=== PATIENT | female | born 1945 | race Hispanic/Latino ===

== ENCOUNTER → 2017-06-06 | Outpatient (CLI) | payer OTHER, MEDICARE ==
[~2017-06-06] MED LIST: ASPI-555 PO; LEVO100T12 PO; LISI2.5T2 PO; PANT40TA25 PO; ROSU10TA PO; SITA100T12 PO
== END | disposition home or self-care (01) ==
LOC: RAH 08:31
PROVIDERS: ATTEND Internal Medicine
DX: R92.8 Other abnormal and inconclusive findings on diagnostic imaging of breast (principal); Z85.3 Personal history of malignant neoplasm of breast; Z90.12 Acquired absence of left breast and nipple
CPT/HCPCS: 77065

== ENCOUNTER 2017-07-19 22:21 | Emergency (ER) | payer OTHER, MEDICARE | END 2017-07-20 00:01 | disposition home or self-care (01) | LOC: EDH 22:21 | DX: T23.101A Burn of first degree of right hand, unspecified site, initial encounter (principal); E11.9 Type 2 diabetes mellitus without complications; I10 Essential (primary) hypertension; E78.5 Hyperlipidemia, unspecified; Z98.890 Other specified postprocedural states; Z72.0 Tobacco use; X12.XXXA Contact with other hot fluids, initial encounter; Y93.89 Activity, other specified; Y92.098 Other place in other non-institutional residence as the place of occurrence of the external cause; Y99.8 Other external cause status | CPT/HCPCS: 16000 ==

== ENCOUNTER 2018-03-04 15:38 | Observation (INO) | payer OTHER, MEDICARE ==
[~2018-03-04] VITALS: Ht 165.1 cm; Wt 95.0 kg
[2018-03-04] MEDS ORDERED: SODIUM CHLORIDE 0.9% 1000ML 1,000 ML IV ONE (16:12)
[2018-03-04 16:35] LABS: BASOPHILS % (AUTO) 0.6 % (0.0-5.0); EOSINOPHILS % (AUTO) 1.1 % (0.0-8.0); LYMPHOCYTES % (AUTO) 24.1 % (21.0-51.0); MEAN CORPUSCULAR HEMOGLOBIN 28.7 pg (27.0-33.0); MEAN CORPUSCULAR HGB CONC 32.7 g/dL (32.0-36.0); MEAN CORPUSCULAR VOLUME 87.7 fL (79-99); MONOCYTES % (AUTO) 6.3 % (3.0-13.0); NEUTROPHILS % (AUTO) 67.9 % (40.0-77.0); NUCLEATED RED BLOOD CELLS 0.2 % (0.0-0.19); PLATELET COUNT (AUTO) 156 K/uL (130-400); RED BLOOD CELL COUNT(AUTO) 4.79 MIL/uL (4.00-5.50); RED CELL DISTRIBUTION WIDTH 15.2 % (11.0-15.5); WHITE BLOOD COUNT (AUTO) 11.3 K/uL (4.8-10.8)
[2018-03-04 16:51] LABS: INR 0.97 (0.85-1.15); PROTHROMBIN TIME 10.2 SEC (9.6-11.6)
[2018-03-04 16:53] LABS: CARBON DIOXIDE 23 mmol/L (21-32); CHLORIDE 104 mmol/L (101-111); CREATININE 0.8 mg/dL (0.5-1.5); GLOMERULAR FILTR. RATE CALC 75 mL/min (>60); GLUCOSE,RANDOM 119 mg/dL (70-105); POTASSIUM 3.9 mmol/L (3.5-5.1); SODIUM SERUM 138 mmol/L (136-145); UREA NITROGEN, BLOOD 18 mg/dL (7-18)
[2018-03-04 17:06] LABS: ALANINE AMINOTRANSFERASE 25 U/L (12-78); ALBUMIN 3.7 g/dL (3.5-5.0); ASPARTATE AMINOTRANSFERASE 22 U/L (10-37); BILIRUBIN,TOTAL 0.8 mg/dL (0.2-1.0); CREATINE KINASE, TOTAL 108 U/L (21-232); MYOGLOBIN 31 ng/mL (10-92); TOTAL PROTEIN, SERUM 7.7 g/dL (6.0-8.3); TROPONIN I < 0.04 ng/mL (0.00-0.06)
[2018-03-04 17:28] LABS: APPEARANCE,URINE Clear (CLEAR); BILIRUBIN,URINE Negative (NEGATIVE); COLOR,URINE Yellow (YELLOW); GLUCOSE, URINE (UA) Negative (NEGATIVE); KETONES,URINE Trace mg/dL (NEGATIVE); LEUKOCYTE ESTERASE ,URINE Trace (NEGATIVE); NITRATE,URINE Negative (NEGATIVE); OCCULT BLOOD,URINE Negative (NEGATIVE); PROTEIN,URINE Negative (NEGATIVE)
[2018-03-04 17:45] LABS: RBC,URINE 0-1 /HPF (0-1)
[2018-03-04 17:46] LABS: BACTERIA,URINE Rare /HPF (None Seen); SQUAMOUS EPITHELIAL CELL,UR Few /HPF (0-2)
[2018-03-04] MEDS ORDERED: COMPOUND IV REFRIGERATED 1 EACH IVSOLN MISC PRN (19:00)
[2018-03-04] MEDS ORDERED: VANCOMYCIN 1.5 GM in SODIUM CHLORIDE 0.9% 250 ML IV ONE (19:00)
[2018-03-04] MEDS ORDERED: VANCOMYCIN PROTOCOL PER PHARMACY IV SCH (19:00)
[2018-03-04] MEDS ORDERED: VANCOMYCIN 2 GM in SODIUM CHLORIDE 0.9% 500ML 500 ML IV ONE (20:00)
[2018-03-04 21:30] VITALS: BP 127/59
[2018-03-04] MEDS: ACETAMINOPHEN 325 MG TAB PO PRN (21:59)
[2018-03-04 23:00] VITALS: BP 104/57
[2018-03-05] MEDS ORDERED: LEVO100T12 PO (01:52)
[2018-03-05] MEDS: 1/2 NORMAL SALINE 1,000 ML IV SCH ×4 (02:29→21:16)
[2018-03-05 03:00] VITALS: BP 90/55
[2018-03-05 04:31] VITALS: BP 101/61
[2018-03-05 05:08] LABS: HEMATOCRIT 37.5 % (36-48); MEAN CORPUSCULAR HEMOGLOBIN 29.9 pg (27.0-33.0); MEAN CORPUSCULAR HGB CONC 34.1 g/dL (32.0-36.0); MEAN CORPUSCULAR VOLUME 87.8 fL (79-99); PLATELET COUNT (AUTO) 145 K/uL (130-400); RED BLOOD CELL COUNT(AUTO) 4.27 MIL/uL (4.00-5.50); WHITE BLOOD COUNT (AUTO) 8.1 K/uL (4.8-10.8)
[2018-03-05 05:24] LABS: ALBUMIN 3.1 g/dL (3.5-5.0); BILIRUBIN,TOTAL 0.8 mg/dL (0.2-1.0); CREATININE 0.8 mg/dL (0.5-1.5); POTASSIUM 3.9 mmol/L (3.5-5.1); TOTAL PROTEIN, SERUM 6.6 g/dL (6.0-8.3)
[2018-03-05 08:12] VITALS: BP 104/52
[2018-03-05] MEDS: PANTOPRAZOLE SODIUM 40 MG TABLET.DR PO SCH (08:29)
[2018-03-05] MEDS: VANCOMYCIN 750MG + NS 250 ML IV SCH ×4 (10:03→21:12)
[2018-03-05] MEDS: ASPIRIN 81 MG EC TAB PO SCH (10:03)
[2018-03-05] MEDS: LINAGLIPTIN 5 MG TABLET PO SCH (10:10)
[2018-03-05 11:51] VITALS: BP 96/55
[2018-03-05 16:02] VITALS: BP 105/53
--- NOTE | 2018-03-05 16:55 | NUR ---
DCP CM met with pt discussed dc plans. Pt is independent prior to admission, lives at home alone, granddaughter Dea Mott lives close by. Pt has a provider 3hrs Fri-Friday. Pt denies any other equipments/services. Feels safe to go back home, still drives, granddaughter able to assist assist with transportation and needs as necessary. DC plan to home once stable. Addendum: 03/05/18 at 1658 by DENISE LOUIS LVN CM Amended: Links added.
[2018-03-05] MEDS ORDERED: CEFTRIAXONE SODIUM 2 GM VIAL IVP SCH (18:00)
[2018-03-05 19:00] VITALS: BP 121/62
[2018-03-05] MEDS ORDERED: ATORVASTATIN CALCIUM 20 MG TABLET PO SCH (21:00)
[2018-03-06 00:24] VITALS: BP 115/69
[2018-03-06 04:02] VITALS: BP 110/64
[2018-03-06 04:40] LABS: HEMATOCRIT 38.9 % (36-48); MEAN CORPUSCULAR HEMOGLOBIN 29.2 pg (27.0-33.0); MEAN CORPUSCULAR HGB CONC 33.5 g/dL (32.0-36.0); MEAN CORPUSCULAR VOLUME 87.1 fL (79-99); NUCLEATED RED BLOOD CELLS 0.1 % (0.0-0.19); PLATELET COUNT (AUTO) 139 K/uL (130-400); RED BLOOD CELL COUNT(AUTO) 4.47 MIL/uL (4.00-5.50); RED CELL DISTRIBUTION WIDTH 15.1 % (11.0-15.5); WHITE BLOOD COUNT (AUTO) 6.3 K/uL (4.8-10.8)
[2018-03-06] MEDS ORDERED: LEVOTHYROXINE 100 MCG TABLET ONE (04:52)
[2018-03-06] MEDS: ACETAMINOPHEN 325 MG TAB PO PRN (04:54)
[2018-03-06 05:06] LABS: CREATININE 0.8 mg/dL (0.5-1.5); POTASSIUM 4.3 mmol/L (3.5-5.1)
[2018-03-06] MEDS ORDERED: LEVOTHYROXINE 100 MCG TABLET PO SCH (06:30)
[2018-03-06 07:00] VITALS: BP 121/62
[2018-03-06] MEDS: PANTOPRAZOLE SODIUM 40 MG TABLET.DR PO SCH (10:47)
[2018-03-06] MEDS: LINAGLIPTIN 5 MG TABLET PO SCH (10:47)
[2018-03-06] MEDS: ASPIRIN 81 MG EC TAB PO SCH (10:48)
[2018-03-06] MEDS: 1/2 NORMAL SALINE 1,000 ML IV SCH (10:48)
[2018-03-06 11:00] VITALS: BP 108/50
--- NOTE | 2018-03-06 11:50 | NUR ---
CALLED DR PARSONS TO GET PATIENT PREPARED FOR DISCAHRGE. NEED FINAL MEDS FOR DISCAHRGE. IT WAS NOT DONE
--- NOTE | 2018-03-06 13:50 | NUR ---
CALLED PHARMACY FOR THE THIRD TIME, THEY APOLOGIZED AND SAID THEY WERE GONNA PUT A VANCO DOSE RIGHT NOW. CALLED DR PARSONS TO GET THE MED REC FOR DISCHARGE. THERE IS A DISCHARGE ORDER BUT THE MEDS WERE NOT FINALIZED, CALLED [phone]. THIS IS THE SECOND TIME I CALL [facility], I LEFT A MESSAGE EXPLAINING THE SITUATION, WILL BE ON STAND BY.
[2018-03-06] MEDS ORDERED: VANCOMYCIN 1GM+NS 250ML 250 ML IV ONE (14:00)
--- NOTE | 2018-03-06 14:34 | NUR ---
GISELL WEBBER TO CALL [facility] AGAIN. THE OFFICE STATED HE WAS NOT THERE, WE TOLD THEM WE NEED [facility]ID DIS CHARGE INSTRUCTIONS FOR A DISCAHRGE FROM [facility] THAT WAS INCOMPLETE. WILL BE ON STAND BY FOR [facility] TO CALL BACK
[2018-03-06 15:44] VITALS: BP 121/68
== END 2018-03-06 17:00 | disposition home or self-care (01) ==
LOC: EDH 15:38 → EDHIP 18:08 → 3DH 19:46
PROVIDERS: ADMIT Internal Medicine; ATTEND Internal Medicine
DX: L03.114 Cellulitis of left upper limb (principal); I89.0 Lymphedema, not elsewhere classified; E11.9 Type 2 diabetes mellitus without complications; E78.5 Hyperlipidemia, unspecified; I10 Essential (primary) hypertension; I25.10 Atherosclerotic heart disease of native coronary artery without angina pectoris; Z85.3 Personal history of malignant neoplasm of breast
CPT/HCPCS: 36415 ×3; 71045; 80048; 80053 ×2; 80202; 81001; 82550; 82948 ×8; 83605; 83874; 84484; 85025; 85027 ×2; 85610; 85730; 87040 ×2; 87088; 93005; 96365; 96366 ×3; 96375; 96376; 99284; A4218; G0378 ×47; J0696; J3370 ×4; J7030 ×3; J7040

== ENCOUNTER 2018-06-09 20:21 | Emergency (ER) | payer OTHER, MEDICARE ==
[2018-06-09 21:22] LABS: BASOPHILS % (AUTO) 0.6 % (0.0-5.0); EOSINOPHILS % (AUTO) 4.1 % (0.0-8.0); HEMATOCRIT 39.5 % (36-48); LYMPHOCYTES % (AUTO) 35.5 % (21.0-51.0); MEAN CORPUSCULAR HEMOGLOBIN 30.7 pg (27.0-33.0); MEAN CORPUSCULAR HGB CONC 34.5 g/dL (32.0-36.0); MONOCYTES % (AUTO) 7.9 % (3.0-13.0); NEUTROPHILS % (AUTO) 51.9 % (40.0-77.0); PLATELET COUNT (AUTO) 143 K/uL (130-400); RED BLOOD CELL COUNT(AUTO) 4.44 MIL/uL (4.00-5.50); RED CELL DISTRIBUTION WIDTH 14.2 % (11.0-15.5); WHITE BLOOD COUNT (AUTO) 7.7 K/uL (4.8-10.8)
[2018-06-09 21:31] LABS: CREATININE 0.8 mg/dL (0.5-1.5); POTASSIUM 4.2 mmol/L (3.5-5.1)
[2018-06-09 21:36] LABS: ALBUMIN 3.8 g/dL (3.5-5.0); BILIRUBIN,TOTAL 0.7 mg/dL (0.2-1.0); TOTAL PROTEIN, SERUM 7.6 g/dL (6.0-8.3)
[2018-06-09] MEDS ORDERED: MORPHINE SULFATE 4 MG/1ML SYG ONE (21:37)
[2018-06-09] MEDS ORDERED: ONDANSETRON HCL 4 MG/2 ML VIAL ONE (21:37)
[2018-06-09] MEDS ORDERED: ONDANSETRON ODT 4 MG TAB ONE (21:44)
[2018-06-17] MEDS ORDERED: LISI2.5T2 PO (05:17)
== END 2018-06-09 23:10 | disposition home or self-care (01) ==
LOC: EDH 20:21
DX: M79.604 Pain in right leg (principal); E11.9 Type 2 diabetes mellitus without complications; K21.9 Gastro-esophageal reflux disease without esophagitis; I25.10 Atherosclerotic heart disease of native coronary artery without angina pectoris; E78.5 Hyperlipidemia, unspecified; I10 Essential (primary) hypertension; M19.90 Unspecified osteoarthritis, unspecified site; Z90.49 Acquired absence of other specified parts of digestive tract; Z98.890 Other specified postprocedural states; Z90.710 Acquired absence of both cervix and uterus; Z85.3 Personal history of malignant neoplasm of breast; Z79.899 Other long term (current) drug therapy; Z72.0 Tobacco use
CPT/HCPCS: 36415; 77065; 80053; 82550; 85025; 85378; 93005; 93971; 96372; 99285; J2270; J2405

== ENCOUNTER → 2018-06-09 | Outpatient (CLI) | payer OTHER, MEDICARE ==
[~2018-06-09] MED LIST changes: -LISI2.5T2 PO; -ROSU10TA PO; +ROSU10TA22 PO
== END | disposition home or self-care (01) ==
LOC: RAH 08:29
PROVIDERS: ATTEND Internal Medicine
DX: R92.8 Other abnormal and inconclusive findings on diagnostic imaging of breast (principal); Z85.3 Personal history of malignant neoplasm of breast; Z76.89 Persons encountering health services in other specified circumstances; Z90.12 Acquired absence of left breast and nipple
CPT/HCPCS: 77065

== ENCOUNTER 2019-01-02 04:53 | Inpatient (IN) | payer OTHER, MEDICARE ==
[~2019-01-02] VITALS: Ht 165.1 cm; Wt 90.7 kg
[~2019-01-02 04:53] MED LIST changes: +LISI2.5T2 PO
[2019-01-02] MEDS ORDERED: ZOSYN 3.375GM+NS 50ML 50 ML IV ONE (05:24)
[2019-01-02] MEDS ORDERED: SODIUM CHLORIDE 0.9% 1000ML 3,000 ML IV ONE (05:24)
[2019-01-02 06:11] LABS: BASOPHILS % (AUTO) 0.5 % (0.0-5.0); EOSINOPHILS % (AUTO) 0.7 % (0.0-8.0); HEMATOCRIT 43.3 % (36-48); LYMPHOCYTES % (AUTO) 9.6 % (21.0-51.0); MEAN CORPUSCULAR HEMOGLOBIN 30.4 pg (27.0-33.0); MEAN CORPUSCULAR HGB CONC 33.8 g/dL (32.0-36.0); MONOCYTES % (AUTO) 2.2 % (3.0-13.0); PLATELET COUNT (AUTO) 194 K/uL (130-400); RED BLOOD CELL COUNT(AUTO) 4.81 MIL/uL (4.00-5.50); RED CELL DISTRIBUTION WIDTH 14.5 % (11.0-15.5); WHITE BLOOD COUNT (AUTO) 12.9 K/uL (4.8-10.8)
[2019-01-02] MEDS ORDERED: ACETAMINOPHEN 325 MG TAB ONE (06:18)
[2019-01-02 06:21] LABS: CREATININE 0.9 mg/dL (0.5-1.5); POTASSIUM 4.3 mmol/L (3.5-5.1)
[2019-01-02 06:23] LABS: APPEARANCE,URINE CLEAR (CLEAR); BILIRUBIN,URINE NEGATIVE (NEGATIVE); COLOR,URINE YELLOW (YELLOW); GLUCOSE, URINE (UA) NEGATIVE (NEGATIVE); KETONES,URINE NEGATIVE (NEGATIVE); LEUKOCYTE ESTERASE ,URINE TRACE (NEGATIVE); NITRATE,URINE NEGATIVE (NEGATIVE); OCCULT BLOOD,URINE NEGATIVE (NEGATIVE); PH,URINE 6.5 (5.0-8.0); PROTEIN,URINE NEGATIVE (NEGATIVE)
[2019-01-02 06:24] LABS: INR 0.99 (0.85-1.15); PARTIAL THROMBOPLASTIN TIME 30.4 SEC (26.3-35.5); PROTHROMBIN TIME 10.4 SEC (9.6-11.6)
[2019-01-02 06:27] LABS: ALBUMIN 4.2 g/dL (3.5-5.0)
[2019-01-02 07:00] LABS: BACTERIA,URINE Few /HPF (None Seen); MUCUS,URINE Rare LPF (None Seen); RBC,URINE None Seen /HPF (0-1); SQUAMOUS EPITHELIAL CELL,UR Few /HPF (0-2)
[2019-01-02] MEDS ORDERED: VANCOMYCIN 1.5 GM in SODIUM CHLORIDE 0.9% 250 ML IV SCH (08:00)
[2019-01-02 09:50] VITALS: BP 125/76
[2019-01-02] MEDS ORDERED: DEXTROSE 50%-WATER 50 ML DISP.SYRIN IV PRN (10:00)
[2019-01-02] MEDS ORDERED: VANCOMYCIN PROTOCOL PER PHARMACY IV SCH (10:00)
[2019-01-02] MEDS ORDERED: MORPHINE SULFATE 4 MG/1ML SYG IV PRN (10:00)
[2019-01-02] MEDS ORDERED: RENAL DOSE IV SCH (10:00)
[2019-01-02] MEDS ORDERED: SODIUM CHLORIDE 0.9% 100 ML IV SCH (10:00)
[2019-01-02] MEDS ORDERED: ONDANSETRON HCL 4 MG/2 ML VIAL IVP PRN (10:00)
[2019-01-02] MEDS ORDERED: GLUCAGON 1MG KIT 1 MG ML IM PRN (10:00)
[2019-01-02] MEDS ORDERED: ZOSYN 3.375GM+NS 50ML 50 ML IV SCH (10:00)
--- NOTE | 2019-01-02 11:00 | NUR ---
NOTE CAME FROM ER WITH DX CELLULITIS LEFT ARM. SHE IS AFEBRILE. NO WOUNDS JUST REDNESS FROM LEFT WRIST TO ALMOST SHOULDER LEFT SIDE. OUTLINED REDNESS WITH PEN. NO BROKEN SKIN NOTED. NO DRAINAGE. FULL ROM TO LEFT AND HAND FINGERS BLANCHING PRESENT TO RED AREAS.
[2019-01-02] MEDS: INSULIN HUMULIN R 100 UNIT/ML 3ML SQ SCH ×3 (11:30→20:26)
[2019-01-02 12:00] VITALS: BP 119/80
[2019-01-02] MEDS ORDERED: COMPOUND IV REFRIGERATED 1 EACH IVSOLN MISC PRN ×2 (12:00→21:00)
[2019-01-02] MEDS: ACETAMINOPHEN 325 MG TAB PO PRN (12:22)
[2019-01-02] MEDS ORDERED: PHARMACY COMMUNICATION MISC SCH (14:00)
[2019-01-02] MEDS: ZOSYN 3.375GM+NS 50ML 50 ML IV SCH ×2 (14:53→22:07)
[2019-01-02] MEDS: MORPHINE SULFATE 2 MG/ML 1ML SYG IVP PRN ×2 (15:46→22:19)
[2019-01-02 16:08] VITALS: BP 96/53
[2019-01-02] MEDS ORDERED: ICOS1CAP PO (18:39)
[2019-01-02] MEDS ORDERED: MECL-111 PO (18:39)
[2019-01-02 19:18] VITALS: BP 111/52
[2019-01-02] MEDS ORDERED: SODIUM CHLORIDE 0.9% 250 ML IV ONE (21:33)
[2019-01-02] MEDS: VANCOMYCIN 1.25 GM in SODIUM CHLORIDE 0.9% 250 ML IV SCH (21:41)
[2019-01-02] MEDS: FAMOTIDINE/PF 20 MG/2 ML VIAL IV SCH (21:43)
[2019-01-02 23:29] VITALS: BP 108/70
[2019-01-03 03:35] VITALS: BP 100/57
[2019-01-03] MEDS: ZOSYN 3.375GM+NS 50ML 50 ML IV SCH ×3 (05:52→22:29)
[2019-01-03] MEDS: INSULIN HUMULIN R 100 UNIT/ML 3ML SQ SCH ×4 (05:52→21:00)
[2019-01-03 08:00] VITALS: BP 105/55
--- NOTE | 2019-01-03 08:00 | NUR ---
NOTE AAOX3. DNEIES PAIN OR DISCOMFORT. NO DISTRESS. HER LEFT ARM REDNESS IS IMPROVED. NOT RED. BLANCHING NOTED. SWELLING UNCHANGED. OUTLINES FROM PEN MARKINGS SHOW THAT REDNESS HAS DECREASED A LITTLE COMPARED TO YESTERDAY. CONTINUES WITH SAME IV ABX. AFEBRILE.
[2019-01-03] MEDS: FAMOTIDINE/PF 20 MG/2 ML VIAL IV SCH ×2 (09:35→20:45)
[2019-01-03] MEDS: ENOXAPARIN SODIUM 40 MG/0.4 ML SYRINGE SQ SCH (09:36)
[2019-01-03] MEDS: VANCOMYCIN 1.25 GM in SODIUM CHLORIDE 0.9% 250 ML IV SCH ×2 (09:36→20:46)
[2019-01-03 10:44] LABS: BASOPHILS % (AUTO) 0.2 % (0.0-5.0); EOSINOPHILS % (AUTO) 0.6 % (0.0-8.0); LYMPHOCYTES % (AUTO) 18.9 % (21.0-51.0); MEAN CORPUSCULAR HGB CONC 34.1 g/dL (32.0-36.0); MEAN CORPUSCULAR VOLUME 90.8 fL (79-99); MONOCYTES % (AUTO) 5.6 % (3.0-13.0); NEUTROPHILS % (AUTO) 74.7 % (40.0-77.0); NUCLEATED RED BLOOD CELLS 0.1 % (0.0-0.19); PLATELET COUNT (AUTO) 150 K/uL (130-400); RED BLOOD CELL COUNT(AUTO) 4.08 MIL/uL (4.00-5.50); RED CELL DISTRIBUTION WIDTH 14.5 % (11.0-15.5); WHITE BLOOD COUNT (AUTO) 9.5 K/uL (4.8-10.8)
[2019-01-03] MEDS ORDERED: MECLIZINE HCL 25 MG TABLET PO PRN (10:45)
[2019-01-03 10:50] LABS: CREATININE 0.8 mg/dL (0.5-1.5); POTASSIUM 3.7 mmol/L (3.5-5.1)
[2019-01-03 10:59] VITALS: BP 113/60
[2019-01-03 11:00] LABS: HEMOGLOBIN A1C 6.3 % (4.0-6.0)
[2019-01-03] MEDS: **HM** VASCEPA 2GM PO SCH ×2 (12:00→16:37)
[2019-01-03 16:00] VITALS: BP 110/60
--- NOTE | 2019-01-03 18:14 | NUR ---
cm note pt resides at home with alone independent with ambulation, has provider for 3hrs daily. has a walker but does not use. dc plan is back to home at pa. no dc needs. Addendum: 01/03/19 at 1816 by JACOB RAMIREZ CM Amended: Links added.
[2019-01-03 19:49] VITALS: BP 103/66
[2019-01-03] MEDS: ACETAMINOPHEN 325 MG TAB PO PRN (23:12)
[2019-01-03 23:54] VITALS: BP 105/64
[2019-01-04 03:25] VITALS: BP 98/54
[2019-01-04 04:45] LABS: BASOPHILS % (AUTO) 0.5 % (0.0-5.0); EOSINOPHILS % (AUTO) 2.5 % (0.0-8.0); HEMATOCRIT 36.6 % (36-48); LYMPHOCYTES % (AUTO) 29.9 % (21.0-51.0); MEAN CORPUSCULAR HEMOGLOBIN 30.9 pg (27.0-33.0); MEAN CORPUSCULAR HGB CONC 34.6 g/dL (32.0-36.0); MEAN CORPUSCULAR VOLUME 89.5 fL (79-99); MONOCYTES % (AUTO) 9.2 % (3.0-13.0); NEUTROPHILS % (AUTO) 57.9 % (40.0-77.0); NUCLEATED RED BLOOD CELLS 0.1 % (0.0-0.19); PLATELET COUNT (AUTO) 172 K/uL (130-400); RED BLOOD CELL COUNT(AUTO) 4.09 MIL/uL (4.00-5.50); RED CELL DISTRIBUTION WIDTH 14.2 % (11.0-15.5); WHITE BLOOD COUNT (AUTO) 7.3 K/uL (4.8-10.8)
[2019-01-04 05:10] LABS: CREATININE 0.9 mg/dL (0.5-1.5); POTASSIUM 4.3 mmol/L (3.5-5.1)
[2019-01-04] MEDS: ZOSYN 3.375GM+NS 50ML 50 ML IV SCH ×2 (05:33→14:04)
[2019-01-04] MEDS: INSULIN HUMULIN R 100 UNIT/ML 3ML SQ SCH ×4 (05:47→21:00)
[2019-01-04 07:58] VITALS: BP 106/71
[2019-01-04] MEDS: LEVOTHYROXINE 100 MCG TABLET PO SCH (10:47)
[2019-01-04] MEDS: PANTOPRAZOLE SODIUM 40 MG TABLET.DR PO SCH (10:47)
[2019-01-04] MEDS: LISINOPRIL 2.5 MG TABLET PO SCH (10:47)
[2019-01-04] MEDS: LINAGLIPTIN 5 MG TABLET PO SCH (10:47)
[2019-01-04] MEDS: VANCOMYCIN 1.25 GM in SODIUM CHLORIDE 0.9% 250 ML IV SCH ×2 (10:47→22:16)
[2019-01-04] MEDS: ASPIRIN 81 MG EC TAB PO SCH (10:47)
[2019-01-04] MEDS: ATORVASTATIN CALCIUM 20 MG TABLET PO SCH (10:48)
[2019-01-04] MEDS: ENOXAPARIN SODIUM 40 MG/0.4 ML SYRINGE SQ SCH (10:48)
[2019-01-04] MEDS: FAMOTIDINE/PF 20 MG/2 ML VIAL IV SCH ×2 (10:48→22:13)
[2019-01-04 11:41] VITALS: BP 149/69
[2019-01-04] MEDS: **HM** VASCEPA 2GM PO SCH ×2 (11:55→17:00)
[2019-01-04 16:00] VITALS: BP 110/60
[2019-01-04 20:00] VITALS: BP 127/62
[2019-01-05] VITALS: BP 118/73
[2019-01-05] MEDS: ZOSYN 3.375GM+NS 50ML 50 ML IV SCH ×2 (00:51→06:26)
[2019-01-05 03:33] VITALS: BP 111/50
[2019-01-05] MEDS: ACETAMINOPHEN 325 MG TAB PO PRN (03:50)
[2019-01-05 04:44] LABS: HEMATOCRIT 38.1 % (36-48); MEAN CORPUSCULAR HEMOGLOBIN 30.7 pg (27.0-33.0); MEAN CORPUSCULAR HGB CONC 34.2 g/dL (32.0-36.0); MEAN CORPUSCULAR VOLUME 89.5 fL (79-99); NUCLEATED RED BLOOD CELLS 0.1 % (0.0-0.19); PLATELET COUNT (AUTO) 167 K/uL (130-400); RED BLOOD CELL COUNT(AUTO) 4.26 MIL/uL (4.00-5.50); RED CELL DISTRIBUTION WIDTH 14.1 % (11.0-15.5); WHITE BLOOD COUNT (AUTO) 6.7 K/uL (4.8-10.8)
[2019-01-05 05:25] LABS: ALBUMIN 3.2 g/dL (3.5-5.0); BILIRUBIN,TOTAL 0.9 mg/dL (0.2-1.0); CREATININE 0.9 mg/dL (0.5-1.5); POTASSIUM 4.2 mmol/L (3.5-5.1); TOTAL PROTEIN, SERUM 7.7 g/dL (6.0-8.3)
[2019-01-05] MEDS: INSULIN HUMULIN R 100 UNIT/ML 3ML SQ SCH ×2 (05:37→11:30)
[2019-01-05 08:00] VITALS: BP 90/60
[2019-01-05] MEDS: VANCOMYCIN 1.25 GM in SODIUM CHLORIDE 0.9% 250 ML IV SCH (08:35)
[2019-01-05] MEDS: LINAGLIPTIN 5 MG TABLET PO SCH (08:36)
[2019-01-05] MEDS: LEVOTHYROXINE 100 MCG TABLET PO SCH (08:36)
[2019-01-05] MEDS: ASPIRIN 81 MG EC TAB PO SCH (08:36)
[2019-01-05] MEDS: FAMOTIDINE/PF 20 MG/2 ML VIAL IV SCH (08:36)
[2019-01-05] MEDS: PANTOPRAZOLE SODIUM 40 MG TABLET.DR PO SCH (08:37)
[2019-01-05] MEDS: ATORVASTATIN CALCIUM 20 MG TABLET PO SCH (08:37)
[2019-01-05] MEDS: LISINOPRIL 2.5 MG TABLET PO SCH (08:37)
[2019-01-05] MEDS: ENOXAPARIN SODIUM 40 MG/0.4 ML SYRINGE SQ SCH (08:38)
[2019-01-05] MEDS: **HM** VASCEPA 2GM PO SCH (11:34)
[2019-01-05 11:56] VITALS: BP 106/69
--- NOTE | 2019-01-05 14:51 | NUR ---
PATIENT DISCHARGE PATIENT DISCHARGED, IV DISCONTINUED, BLEEDING CONTROLLED, CATHLON INTACT, PATIENT TOLERATED WITHOUT INCIDENT. 0
== END 2019-01-05 16:30 | disposition home or self-care (01) | DRG 872 ==
LOC: EDH 04:53 → EDHIP 07:01 → INTOOBSV 07:01 → OBSVTOIN 07:01 → 3AH 10:08
PROVIDERS: ADMIT Internal Medicine; ATTEND Internal Medicine
DX: A41.9 Sepsis, unspecified organism (principal); L03.114 Cellulitis of left upper limb; I25.10 Atherosclerotic heart disease of native coronary artery without angina pectoris; K21.9 Gastro-esophageal reflux disease without esophagitis; E66.9 Obesity, unspecified; E78.5 Hyperlipidemia, unspecified; N18.9 Chronic kidney disease, unspecified; I12.9 Hypertensive chronic kidney disease with stage 1 through stage 4 chronic kidney disease, or unspecified chronic kidney disease; E11.22 Type 2 diabetes mellitus with diabetic chronic kidney disease; F17.200 Nicotine dependence, unspecified, uncomplicated; Z80.3 Family history of malignant neoplasm of breast; Z82.49 Family history of ischemic heart disease and other diseases of the circulatory system; Z83.3 Family history of diabetes mellitus; Z85.3 Personal history of malignant neoplasm of breast; Z90.12 Acquired absence of left breast and nipple; Z96.651 Presence of right artificial knee joint; Z90.49 Acquired absence of other specified parts of digestive tract; Z68.33 Body mass index [BMI] 33.0-33.9, adult
CPT/HCPCS: 36415; 71045; 80048; 80053; 80202; 81001; 82550; 82948; 83036; 83605; 84145; 84484; 85025; 85027; 85610; 85730; 87040; 87088; 87804; 93005; 93971; G0378; J1650; J2543; J3370; J3490; J7030

== ENCOUNTER 2020-02-23 00:38 | Emergency (ER) | payer OTHER, MEDICARE ==
[~2020-02-23 00:38] MED LIST changes: -ASPI-555 PO; +ASPI-556 PO; +ICOS1CAP PO; +MECL-160 PO; -PANT40TA25 PO; +PANT40TA54 PO
[2020-02-23] MEDS ORDERED: LIDOCAINE HCL-MPF 1% 2ML VIAL ONE (01:04)
[2020-02-23] MEDS ORDERED: ACETAMINOPHEN 325 MG TAB ONE (01:05)
[2020-02-23] MEDS ORDERED: CEFTRIAXONE SODIUM 1 GM ONE (01:05)
[2020-02-23] MEDS ORDERED: DIPHENHYDRAMINE HCL 25 MG CAPSULE ONE (01:05)
[2020-02-23 01:37] LABS: BASOPHILS % (AUTO) 0.3 % (0.0-5.0); EOSINOPHILS % (AUTO) 1.5 % (0.0-8.0); LYMPHOCYTES % (AUTO) 16.5 % (21.0-51.0); MEAN CORPUSCULAR HEMOGLOBIN 30.2 pg (27.0-33.0); MEAN CORPUSCULAR HGB CONC 33.4 g/dL (32.0-36.0); MEAN CORPUSCULAR VOLUME 90.5 fL (79-99); MONOCYTES % (AUTO) 5.8 % (3.0-13.0); NEUTROPHILS % (AUTO) 75.5 % (40.0-77.0); PLATELET COUNT (AUTO) 185 K/uL (130-400); RED BLOOD CELL COUNT(AUTO) 4.53 MIL/uL (4.00-5.50); RED CELL DISTRIBUTION WIDTH 13.3 % (11.0-15.5); WHITE BLOOD COUNT (AUTO) 12.9 K/uL (4.8-10.8)
[2020-02-23 01:47] LABS: CREATININE 0.9 mg/dL (0.5-1.5); POTASSIUM 4.3 mmol/L (3.5-5.1)
== END 2020-02-23 02:06 | disposition home or self-care (01) ==
LOC: EDH 00:38
DX: L03.114 Cellulitis of left upper limb (principal); E11.9 Type 2 diabetes mellitus without complications; I10 Essential (primary) hypertension; I25.10 Atherosclerotic heart disease of native coronary artery without angina pectoris; M19.90 Unspecified osteoarthritis, unspecified site; E07.9 Disorder of thyroid, unspecified; Z85.3 Personal history of malignant neoplasm of breast; Z72.0 Tobacco use; Z98.890 Other specified postprocedural states
CPT/HCPCS: 36415; 80048; 85025; 96372; 99283; J0696; J3490; Q0163

== ENCOUNTER → 2020-06-06 | Outpatient (CLI) | payer OTHER, MEDICARE | END | disposition home or self-care (01) | LOC: RAH 08:31 | PROVIDERS: ATTEND Internal Medicine | DX: J44.9 Chronic obstructive pulmonary disease, unspecified (principal); I10 Essential (primary) hypertension; E66.9 Obesity, unspecified; E78.5 Hyperlipidemia, unspecified; E11.9 Type 2 diabetes mellitus without complications; R55 Syncope and collapse; I51.7 Cardiomegaly; Z90.12 Acquired absence of left breast and nipple | CPT/HCPCS: 93306; 93356 ==